=== PATIENT | male | born 1965 | race Caucasian/White ===

== ENCOUNTER 2016-09-11 05:59 | Day surgery (SDC) | payer OTHER ==
[2016-08-10 15:46] VITALS: BMI 33.5
[2016-09-11] MEDS ORDERED: MIDAZOLAM HCL 2 MG/2 ML SINGLE DOSE VIAL ONE (06:26)
[2016-09-11] MEDS ORDERED: DEXAMETHASONE SOD PHOSPHATE/PF 10 MG/ML SDV ONE (06:26)
[2016-09-11] MEDS ORDERED: ROPIVACAINE HCL 0.5% 30ML VIAL ONE (06:26)
[2016-09-11] MEDS ORDERED: PROPOFOL 20 ML ONE ×3 (07:11)
[2016-09-11] MEDS ORDERED: EPINEPHrine 1:1,000 1 MG/1 ML - 30ML VIAL (INJECTION) ONE (07:13)
[2016-09-11] MEDS ORDERED: BUPIVACAINE HCL/EPINEPHRINE/PF 30 ML VIAL IJ ONE (07:13)
[2016-09-11] MEDS ORDERED: ONDANSETRON 4 MG/2 ML VIAL ONE ×2 (07:51→09:31)
[2016-09-11] MEDS ORDERED: ceFAZolin SODIUM 1 GM VIAL ONE (07:51)
[2016-09-11] MEDS ORDERED: oxyCODONE HCL 5 MG TABLET PO PRN (08:40)
[2016-09-11] MEDS ORDERED: oxyCODONE HCL 10 MG SUSTAINED ACTING TABLET PO ONE (08:40)
--- NOTE | 2016-09-11 08:43 | OP ---
Operative Note - Note: Operative Date: 09/11/16 Pre-Operative Diagnosis: right shoulder rotator cuff tear Operation: RSA, SAD, biceps tenodesis, RCR Post-Operative Diagnosis: Same as Pre-op Surgeon: Albin García Anesthesia: General Operative Report Dictated: Yes
--- NOTE | 2016-09-11 08:44 | DS ---
Physical Examination Vital Signs: Vital Signs Temperature 98.0 F 09/11/16 06:21 Pulse Rate 68 09/11/16 06:21 Respiratory Rate 16 09/11/16 06:21 Blood Pressure 118/85 09/11/16 06:21 O2 Sat by Pulse Oximetry (%) 96 09/11/16 06:28 Discharge Summary Reason For Visit: RIGHT ROTATOR CUFF TEAR SHOULDER Condition: Good - Instructions Diet, Activity, Other Instructions: Post Operative Instructions: Shoulder Arthroscopy Dr Albin García 1. Pain following a Shoulder Arthroscopy is variable and can be significant. Some patients will have more pain than others. You have been provided with a prescription for medication that contains a narcotic. You are not allowed to drive while on this medication. You should NOT take Tylenol (Acetaminophen) when taking the pain medication ( it will result in an overdose). Feel free to take medications such as Ibuprofen or Naprosyn in addition to the pain medicine if you do not have any problems with the NSAID class of medications. 2. Apply ice to the shoulder for 15 minutes every hour. You may continue this for as many days as necessary. 3. You may find sleeping on an incline (reclining chair) to be more comfortable for the first few days. 4. You must remain in your sling at all times except when showering. The only exception to this is to allow you to stretch your elbow a few times a day to prevent your hand and forearm from swelling. 5. You are not to use your arm to reach for anything, lift anything or carry anything until instructed otherwise. 6. You may remove the bandages in 48 hours. You may shower at that point. 7. Place band-aids on the sutures after your shower.Do not put any creams or lotions on the incision until after the sutures are removed. 8. Please call the office to schedule a visit to have your sutures removed. 9. If for any reason you believe you may have an infection or are concerned, please feel free to call me. I can be reached through our office number 24 hours a day. 10. Please call our office with any questions; we will review the surgical findings during your post-operative visit. Disposition: HOME - Home Medications Comprehensive Discharge Medication List: Ambulatory Orders Gabapentin [Neurontin] 400 mg PO BID 08/12/16 Naproxen [Naprosyn -] 500 mg PO BID PRN 08/12/16 Tizanidine HCl 4 mg PO HS PRN 08/12/16
[2016-09-11] MEDS ORDERED: ONDANSETRON 4 MG/2 ML VIAL IVPUSH ONE (09:35)
--- NOTE | 2016-09-11 09:51 | HP ---
Admitting History and Physical - Admission History of Present Illness: The patient is a 51 yo male who injured himself in February of this year. He originally presented for surgery in july but was cancelled because of an upper respiratory illiness. Curently he denies any CP, SOB, fevers. He has pain in his right shoulder with certain movements but otherwise comfortable. History Source: Patient Limitations to Obtaining History: No Limitations - Past Medical History Cardiovascular: Yes: HTN. No: Deep Vein Thrombosis Pulmonary: No: Asthma Endocrine: No: Diabetes Mellitus - Past Surgical History Past Surgical History: Yes: Appendectomy Additional Past Surgical History: left knee surgery anterior/posterior cervical surgery - Smoking History Smoking history: Former smoker Have you smoked in the past 12 months: No If you are a former smoker, when did you quit?: 17 yrs ago - Alcohol/Substance Use Hx Alcohol Use: Yes (socially) Home Medications - Allergies Allergies/Adverse Reactions: Allergies Allergy/AdvReac Type Severity Reaction Status Date / Time No Known Allergies Allergy Verified 09/11/16 06:29 - Home Medications Home Medications: Ambulatory Orders Gabapentin [Neurontin] 400 mg PO BID 08/12/16 Naproxen [Naprosyn -] 500 mg PO BID PRN 08/12/16 Tizanidine HCl 4 mg PO HS PRN 08/12/16 Review of Systems - Review of Systems Constitutional: denies: Chills, Fever Neck: denies: Decreased ROM, Pain on Movement Cardiovascular: denies: Chest Pain, Palpitations Respiratory: denies: Cough, SOB Gastrointestinal: denies: Abdominal Pain Musculoskeletal: reports: Decreased ROM (right shoulder), Extremity Pain (right shoulder). denies: Muscle Weakness Neurological: denies: Numbness, Parasthesia, Weakness Physical Examination Vital Signs: Vital Signs Temperature 98.0 F 09/11/16 06:21 Pulse Rate 68 09/11/16 06:21 Respiratory Rate 16 09/11/16 06:21 Blood Pressure 118/85 09/11/16 06:21 O2 Sat by Pulse Oximetry (%) 96 09/11/16 06:28 Constitutional: Yes: Well Nourished, No Distress, Calm HENT: Yes: WNL, Atraumatic, Normocephalic Neck: Yes: WNL, Supple, Trachea Midline Cardiovascular: Yes: WNL, Regular Rate and Rhythm Respiratory: Yes: WNL, Regular, CTA Bilaterally Gastrointestinal: Yes: WNL, Normal Bowel Sounds, Soft Musculoskeletal: No: Muscle Weakness Extremities: No: Calf Tenderness, Deformity Edema: No Peripheral Pulses WNL: Yes Peripheral Pulses: Left Doralis Pedis: 2+, Right Dorsalis Pedis: 2+, Left Femoral: 2+, Right Femoral: 2+ ...Motor Strength: LUE, LLE, RUE, RLE Assessment/Plan 51 yo male for repair of right shoulder rotator cuff tear cont npo Plan for discharge to home today with pain medications DVT ppx with SCD, early ambulation.
--- NOTE | 2016-09-11 10:02 | SURG ---
Surgery Baggage Handler Note Baggage Handler: Susie Bhardwaj PA-C Date of Service: 09/11/16 Diagnosis: right shoulder rotator cuff tear Procedure: RSA, SAD, biceps tenodesis, RCR I was present for the entirety of the operative procedure. For further detail, please refer to operative report. Visit type - Case Type Case Type: Scheduled Admission - Emergency Emergency Visit: No - New patient This patient is new to me today: Yes Date on this admission: 09/11/16 - Critical Care Critical Care patient: No
[2016-09-11 10:41] VITALS: TEMP 98.7
[2016-09-11] MEDS ORDERED: oxyCODONE HCL 10 MG SUSTAINED ACTING TABLET ONE (10:43)
[2016-09-11 12:16] VITALS: BP 127/78; PULSE 70
--- NOTE | 2016-09-16 14:44 | PATH ---
Surgical Pathology Report Patient Name: SCHUYLER BARRIGA Med. Rec. #: [id number] /Age/Gender: 1965 (Age: 51) / M Account: [id number] Location: [facility] Taken: 09/11/2016 Received: 09/11/2016 Reported: 09/16/2016 Physicians: Albin García M.D. Specimen(s) Received RIGHT SHOULDER SHAVINGS Clinical History Right rotator cuff tear shoulder Final Diagnosis SHOULDER, RIGHT, SHAVINGS: FIBROSYNOVIAL TISSUE, CARTILAGE AND SCANT BONE. Electronically Signed Mari Farmer M.D. Gross Description Received in formalin, labeled "right shoulder shaving," is a 2.5 x 2.0 x 0.3 cm. aggregate of peck-yellow soft tissue fragments. A patient accounting representative portion is submitted in one cassette. /09/11/201609/11/2016
== END 2016-09-11 11:30 | disposition home or self-care (01) ==
LOC: FASU 05:59
PROVIDERS: ATTEND Orthopaedic Surgery
PROC: 0RBJ4ZZ Excision of Right Shoulder Joint, Percutaneous Endoscopic Approach (ICD-10-PCS; 2016-09-11)
PROC: 0LB14ZZ Excision of Right Shoulder Tendon, Percutaneous Endoscopic Approach (ICD-10-PCS; principal; 2016-09-11 08:06)
PROC: 0MN14ZZ Release Right Shoulder Bursa and Ligament, Percutaneous Endoscopic Approach (ICD-10-PCS; 2016-09-11 08:06)
DX: M75.121 Complete rotator cuff tear or rupture of right shoulder, not specified as traumatic (principal); M75.51 Bursitis of right shoulder; M66.821 Spontaneous rupture of other tendons, right upper arm; I10 Essential (primary) hypertension
CPT/HCPCS: 88304-TC; 94760